=== PATIENT | male | born 1980 | race Caucasian/White ===

== ENCOUNTER → 2023-06-01 09:27 | Outpatient (CLI) | payer MEDICARE, SELFPAY | PROVIDERS: Referring Provider Family Medicine; Visit Provider Family Medicine | DX: Z23 Encounter for immunization (principal) | CPT/HCPCS: 90471; 90686 ==

== ENCOUNTER → 2024-04-30 13:44 | Outpatient (CLI) | payer MEDICARE, SELFPAY | PROVIDERS: Referring Provider Internal Medicine; Visit Provider Internal Medicine | DX: Z23 Encounter for immunization (principal) | CPT/HCPCS: 90471; 90656 ==

== ENCOUNTER 2025-03-19 08:11 | Emergency (ER) | payer SELFPAY ==
[2025-03-19] VITALS (21 sets, daily range): BP systolic 132–203; BP diastolic 79–117; PULSE 54–76; RESP 16–49; TEMP 37.3; O2SAT 81–98; BMI 46.3
--- NOTE | 2025-03-19 08:40 | DI.CT.S_ITS ---
PROCEDURE: CT ABDOMEN PELVIS W CON INDICATIONS: flank pain TECHNIQUE: After the administration of intravenous contrast, axial sections acquired from the lung bases to the pubic symphysis. Coronal and sagittal reformats were performed. For radiation dose reduction, the following was used: automated exposure control, adjustment of mA and/or kV according to patient size. COMPARISON: None. FINDINGS: Image quality: Diagnostic. Lower Chest: No significant findings. ABDOMEN: Markedly abnormal appearance of the right kidney with severe hydronephrosis and proximal hydroureter with the right ureteropelvic junction measuring up to 7 centimeters diameter. The mid and distal right ureter within normal limits in size. No gross abnormal calcification. [id number] enlarged prostate gland and seminal vesicles. Urinary bladder is nondistended. Mild nonspecific wall thickening descending and sigmoid colon commonly artifact from partial nondistention. In a few scattered diverticula in the descending colon. Pattern of constipation. Small sliding hiatal hernia with nonspecific wall thickening of the stomach into the proximal duodenum. Degenerative changes lower thoracic, lumbar spine most notably L5-S1. Liver: Liver is normal in size contour and attenuation without CT evidence of focal hepatic lesion. Gallbladder: No radiopaque gallstones or wall thickening. Biliary ducts: No biliary dilation. Pancreas: No ductal dilation. Spleen: Size is within normal limits. Adrenal Glands: No adrenal nodules. Small Bowel: Yolanda caliber, without wall thickening or obstruction. Peritoneum: No abnormal intraperitoneal fluid. No free air. Ventral Wall: No significant ventral hernia. Abdominal Nodes: No retroperitoneal or mesenteric adenopathy by size criteria. Vessels: Aorta and inferior vena cava are normal in size. PELVIS: Pelvic Organs: Unremarkable. Bladder: No bladder wall thickening, accounting for underdistention. Pelvic Nodes: No enlarged lymph nodes. Miscellaneous: No inguinal hernias are seen. IMPRESSION: Markedly abnormal appearance of the right kidney with severe right hydronephrosis and proximal hydroureter, pattern of obstruction. Other chronic findings as above. Dictated by: Compa Pendleton M.D. on 03/19/2025 at 9:06 Approved by: Compa Pendleton M.D. on 03/19/2025 at 9:11
--- NOTE | 2025-03-19 08:48 | ED.ABDPAIN ---
HPI - Abdominal Pain General Chief Complaint: Abdominal Pain Stated Complaint: Severe right side pain Time Seen by Provider: 03/19/25 08:33 Source: patient Mode of arrival: Ambulatory History of Present Illness HPI narrative: 44-year-old male complaining of bilateral flank pain right greater than left. Says it has been intermittent and ongoing for possibly up to a month. The pain is often times associated with nausea vomiting and sweats. He has not noted any fevers no changes in his bowel habits. Has been using ibuprofen and acetaminophen for pain with a incomplete relief has not seen a doctor for this previously. Says that he vomited a little bit of blood this morning. Not having dysuria frequency did note some blood in his urine this morning. Not presently taking any prescription medications. Related Data Previous Rx's ?Medication ?Instructions ?Recorded ondansetron 4 mg disintegrating 4 mg PO Q6H PRN nausea and 03/19/25 tablet vomiting #14 tabs oxycodone 5 mg tablet 5 mg PO Q6H PRN pain #20 tabs 03/19/25 Allergies Allergy/AdvReac Type Severity Reaction Status Date / Time amoxicillin Allergy Vomiting Verified 03/19/25 08:31 clavulanic acid (From Allergy Vomiting Verified 03/19/25 08:31 Augmentin) Penicillins Allergy Vomiting Verified 03/19/25 08:31 Patient History Smoking Status: Never smoker Exam Narrative Exam Narrative: Obese male who appears to be in no distress Vital signs are reviewed he is hypertensive, No CVAT no midline tenderness of the lumbar spine. Skin remarkable for diaphoresis Lungs are clear, hallux sounds are normal Abdomen is obese soft with some right flank tenderness no guarding no rebound and no mass. Neurologically he is alert and oriented no focal deficit affect is appropriate Initial Vital Signs Initial Vital Signs: Vital Signs Pulse Oximetry 96 03/19/25 08:21 Course Orders Ordered: ED Orders 03/19/25 08:40 CT abdomen pelvis w con Stat 03/19/25 08:42 Complete Blood Count AUTO DIFF Stat Comprehensive Metabolic Panel Stat Lipase Stat PTT Partial Thromboplastin Carlos Manuel Stat Prothrombin Time INR Stat 03/19/25 08:52 Type and Screen Stat 03/19/25 11:38 Urine Microscopic Stat 03/19/25 11:47 Consult to Urology Stat Discontinued Medications Hydromorphone HCl (Hydromorphone Hcl 0.5 Mg/0.5 Ml Syringe) 1 mg IV NOW ONE Stop: 03/19/25 09:46 Last Admin: 03/19/25 09:47 Dose: 1 mg Documented By: JUNAID Sodium Chloride (Normal Saline 0.9%) 1,000 mls @ 1,000 mls/hr IV BOLUS ONE Stop: 03/19/25 11:55 Last Infusion: 03/19/25 13:02 Dose: Infused Documented By: Admin: 03/19/25 11:10 Dose: 1,000 mls/hr Documented By: MILTON Ondansetron HCl (Ondansetron 4 Mg/2 Ml Inj) 4 mg IV NOW PRN PRN Reason: Nausea And Vomiting Last Admin: 03/19/25 09:48 Dose: 4 mg Documented By: JUNAID Ondansetron HCl (Ondansetron 4 Mg Odt) 4 mg PO NOW PRN PRN Reason: Nausea And Vomiting Consultations Consultation #1: Consulted Urology who saw the patient here in the emergency department. recommended outpatient follow up. Other options were presented to the patient by Urology Vital Signs Vital signs: Vital Signs - 8 hr 03/19/25 08:21 03/19/25 08:22 03/19/25 08:22 Temperature Pulse Rate 63 Respiratory Rate Blood Pressure 170/92 H Pulse Oximetry 96 96 Oxygen Delivery Method Oxygen Flow Rate 03/19/25 08:29 03/19/25 08:30 03/19/25 08:30 Temperature 99.1 F Pulse Rate 63 56 L Respiratory Rate 18 22 Blood Pressure 170/92 H 160/85 H Pulse Oximetry 96 96 Oxygen Delivery Method Room Air Oxygen Flow Rate 03/19/25 09:02 03/19/25 09:03 03/19/25 09:03 Temperature Pulse Rate 65 59 L Respiratory Rate 21 16 Blood Pressure 153/88 H Pulse Oximetry 95 95 Oxygen Delivery Method Oxygen Flow Rate 03/19/25 09:30 03/19/25 09:30 03/19/25 10:00 Temperature Pulse Rate 61 64 Respiratory Rate 28 H 21 Blood Pressure 203/117 H Pulse Oximetry 95 86 L Oxygen Delivery Method Oxygen Flow Rate 03/19/25 10:01 03/19/25 10:01 03/19/25 10:30 Temperature Pulse Rate 65 66 Respiratory Rate 17 25 H Blood Pressure 136/80 Pulse Oximetry 81 L 98 Oxygen Delivery Method Oxygen Flow Rate 03/19/25 10:30 03/19/25 11:00 03/19/25 11:00 Temperature Pulse Rate 65 Respiratory Rate 24 Blood Pressure 132/80 135/79 Pulse Oximetry 97 Oxygen Delivery Method Oxygen Flow Rate 03/19/25 11:30 03/19/25 11:30 03/19/25 12:00 Temperature Pulse Rate 76 Respiratory Rate 49 H Blood Pressure 155/84 H 140/107 H Pulse Oximetry 90 L Oxygen Delivery Method Oxygen Flow Rate 03/19/25 12:00 03/19/25 12:30 03/19/25 12:31 Temperature Pulse Rate 65 69 60 Respiratory Rate Blood Pressure Pulse Oximetry 97 98 97 Oxygen Delivery Method Nasal Cannula Oxygen Flow Rate 2 03/19/25 12:31 03/19/25 13:00 03/19/25 13:00 Temperature Pulse Rate 58 L Respiratory Rate Blood Pressure 179/98 H 174/108 H Pulse Oximetry 98 Oxygen Delivery Method Oxygen Flow Rate 03/19/25 13:30 03/19/25 13:31 03/19/25 13:31 Temperature Pulse Rate 63 61 Respiratory Rate Blood Pressure 144/92 H Pulse Oximetry 98 97 Oxygen Delivery Method Oxygen Flow Rate 03/19/25 14:00 03/19/25 14:30 03/19/25 14:31 Temperature Pulse Rate 54 L 60 56 L Respiratory Rate Blood Pressure Pulse Oximetry 97 98 98 Oxygen Delivery Method Oxygen Flow Rate 03/19/25 14:31 Temperature Pulse Rate Respiratory Rate Blood Pressure 185/96 H Pulse Oximetry Oxygen Delivery Method Oxygen Flow Rate MDM - Abdominal Pain Lab Data Lab results narrative: Labs were remarkable for a mild leukocytosis with a white count of 12.7. Creatinine is high normal at 1.2. Urinalysis does not suggest infection 03/19/25 08:42 03/19/25 08:42 Labs: Lab Results 03/19/25 03/19/25 03/19/25 Range/Units 08:42 08:52 11:38 WBC 12.7 H (4.5-11.0) X10^3/uL RBC 4.76 (4.5-5.9) X10^6/uL Hgb 13.8 (13.5-17.5) g/dL Hct 40.1 L (41-53) % MCV 84.2 (80-100) fL MCH 28.9 (26-34) PG MCHC 34.4 (30-36) % RDW 14.1 (11.6-14.8) % Plt Count 187 (150-400) X10^3/uL Neut % (Auto) 88.8 H (50-75) % Lymph % (Auto) 7.0 L (25-40) % [place] % (Auto) 3.5 (3-14) % Eos % (Auto) 0.1 L (2-4) % Baso % (Auto) 0.6 (0-2) % Neut # (Auto) 36227 H (6182-8598) /uL Lymph # (Auto) 900 L (9046-8846) /uL [place] # (Auto) 400 (0-900) /uL Eos # (Auto) 0 (0-450) /uL Baso # (Auto) 100 (0-100) /uL PT 11.5 (9.4-12.5) SECONDS INR 1.0 (0.9-1.3) APTT 32 (25.1-36.5) SECONDS Sodium 138 (137-145) mmol/L Potassium 3.8 (3.4-5.1) mmol/L Chloride 107 (98-107) mmol/L Carbon Dioxide 23 (22-32) mmol/L BUN 22 H (9-20) mg/dL Creatinine 1.20 (0.66-1.25) mg/dL Estimated GFR > 60 (>60) mL/min BUN/Creatinine Ratio 18.3 (6-22) Glucose 122 H (70-99) mg/dL Calcium 9.1 (8.4-10.2) mg/dL Total Bilirubin 0.5 (0.2-1.3) mg/dL AST 27 (17-59) IU/L ALT 32 (<50) IU/L Alkaline Phosphatase 69 (38-126) U/L Total Protein 8.0 (6.3-8.2) g/dL Albumin 4.4 (3.5-5.0) g/dL Globulin 3.6 (1.7-4.1) g/dL Albumin/Globulin Ratio 1.2 (1.0-2.8) Lipase 52 (23-300) U/L Urine RBC 0-1/hpf (0-5/HPF) Urine WBC None seen (0-5/HPF) Ur Squamous Epith Cells None seen (0-5/HPF) Urine Bacteria None seen (None) Ur Culture Indicated? Cult not indicated Vol Urine Centrifuged 10ml (spun) Blood Type O Negative Antibody Screen Negative Point of care testing: Urine Dip Bedside Urine Glucose Negative Bedside Urine Bilirubin - Negative Bedside Urine Ketone + 15 Urine Specific [place] 1.010 Bedside Urine Occult Blood ++ Bedside Urine pH 6.0 Bedside Urine Protein +/- 15 Bedside Urine Urobilinogen +/- 1mg Bedside Urine Nitrite - Negative Bedside Urine Leukocytes - Negative Esterase Imaging Data CT scan - abdomen/pelvis: My Impression: Independent review of CT abdomen and pelvis, very pronounced right hydronephrosis, and massive hydroureter, I do not appreciate a calcified stone. No inflammatory changes of the left lower quadrant your right lower quadrant. Radiologist's Impression: [address] [address] [address] Scan Report Signed Patient: Billy Burnett MR#: [id number] : 1980 Acct:[id number] Age/Sex: 44 / M Date of Service: 03/19/25 Loc: ED Accession Number: [id number] Procedure: CT abdomen pelvis w con Ordering Provider: Itz Escobar MD PROCEDURE: CT ABDOMEN PELVIS W CON INDICATIONS: flank pain TECHNIQUE: After the administration of intravenous contrast, axial sections acquired from the lung bases to the pubic symphysis. Coronal and sagittal reformats were performed. For radiation dose reduction, the following was used: automated exposure control, adjustment of mA and/or kV according to patient size. COMPARISON: None. FINDINGS: Image quality: Diagnostic. Lower Chest: No significant findings. ABDOMEN: Markedly abnormal appearance of the right kidney with severe hydronephrosis and proximal hydroureter with the right ureteropelvic junction measuring up to 7 centimeters diameter. The mid and distal right ureter within normal limits in size. No gross abnormal calcification. Egdp-[id number]-[id number] enlarged prostate gland and seminal vesicles. Urinary bladder is nondistended. Mild nonspecific wall thickening descending and sigmoid colon commonly artifact from partial nondistention. In a few scattered diverticula in the descending colon. Pattern of constipation. Small sliding hiatal hernia with nonspecific wall thickening of the stomach into the proximal duodenum. Degenerative changes lower thoracic, lumbar spine most notably L5-S1. Liver: Liver is normal in size contour and attenuation without CT evidence of focal hepatic lesion. Gallbladder: No radiopaque gallstones or wall thickening. Biliary ducts: No biliary dilation. Pancreas: No ductal dilation. Spleen: Size is within normal limits. Adrenal Glands: No adrenal nodules. Small Bowel: Yolanda caliber, without wall thickening or obstruction. Peritoneum: No abnormal intraperitoneal fluid. No free air. Ventral Wall: No significant ventral hernia. Abdominal Nodes: No retroperitoneal or mesenteric adenopathy by size criteria. Vessels: Aorta and inferior vena cava are normal in size. PELVIS: Pelvic Organs: Unremarkable. Bladder: No bladder wall thickening, accounting for underdistention. Pelvic Nodes: No enlarged lymph nodes. Miscellaneous: No inguinal hernias are seen. IMPRESSION: Markedly abnormal appearance of the right kidney with severe right hydronephrosis and proximal hydroureter, pattern of obstruction. Other chronic findings as above. Dictated by: Compa Pendleton M.D. on 03/19/2025 at 9:06 Approved by: Compa Pendleton M.D. on 03/19/2025 at 9:11 [facility] Narrative Medical decision making narrative: 44-year-old male presenting with flank pain. Differential diagnosis included pyelonephritis, ureteral stone, I considered the possibility of zoster or intra-abdominal causes such as bowel obstruction aortic aneurysm for cholecystitis. Workup did not suggest infection however he did have massive right hydronephrosis without stone seen. Renal functions are retained. Patient was seen in the department by Urology and outpatient follow up was planned. I provided a prescription for oxycodone to use as needed for pain and Zofran. The patient was counseled as to the signs of infection in the need for immediate recheck should these occur. Discharge Plan Departure Patient Disposition: Home Clinical Impression: Hydronephrosis, right, Acute right flank pain Activity Restrictions/Additional Instructions: Emergency department workup today shows a blockage of the flow out of your right kidney (hydronephrosis). You have been seen by Urology and will need to follow up with them for this. Call his office to make an appointment it appeared that they wanted to see you in about 4 weeks. In the meantime, continue previous home medications, you can use Tylenol 650-1000 mg up to 4 times a day as needed for pain, your total daily dose of Tylenol should not be above 4000 mg. You can also use ibuprofen 600 mg up to 3 times a day, it is best to take ibuprofen with food. I have provided prescriptions for ondansetron and oxycodone, ondansetron is for nausea and oxycodone is for pain. The oxycodone is a narcotic medication, use it sparingly, it can cause independence it can cause constipation he will make you drowsy you should not drink alcohol or operate machinery after taking it. If you develop signs of infection such as fevers shaking chills frequent vomiting you should return to the emergency department immediately. Additionally, return if you have uncontrolled pain. Prescriptions: New oxycodone 5 mg tablet 5 mg PO Q6H PRN (Reason: pain) Qty: 20 0RF ondansetron 4 mg tablet,disintegrating 4 mg PO Q6H PRN (Reason: nausea and vomiting) Qty: 14 0RF Referrals: Dhruv Degroot DO [Physician, Urology] Clinical Impression: Hydronephrosis, right Stand Alone Forms: Patient Portal/API, Work Release Note
[2025-03-19 08:51] LABS: Add Manual Diff / Slide Review NO; Hematocrit 40.1 % (41-53); Hemoglobin 13.8 g/dL (13.5-17.5); Lymphocytes Absolute Auto 900 /uL (1100-4500); Mean Corpuscular HGB Conc 34.4 % (30-36); Mean Corpuscular Hemoglobin 28.9 PG (26-34); Mean Corpuscular Volume 84.2 fL (80-100); Platelet Count 187 X10^3/uL (150-400)
[2025-03-19 08:58] LABS: INR 1.0 (0.9-1.3); Prothrombin Time 11.5 SECONDS (9.4-12.5)
[2025-03-19 09:01] LABS: PTT Partial Thromboplastin Tim 32 SECONDS (25.1-36.5)
[2025-03-19 09:03] LABS: Alanine Aminotransferase 32 IU/L (<50); Albumin 4.4 g/dL (3.5-5.0); Albumin Globulin Ratio 1.2 (1.0-2.8); Alkaline Phosphatase 69 U/L (38-126); Blood Urea Nitrogen 22 mg/dL (9-20); Calcium 9.1 mg/dL (8.4-10.2); Carbon Dioxide 23 mmol/L (22-32); Chloride 107 mmol/L (98-107); Estimated Glomerular Filt Rate > 60 mL/min (>60); Globulin 3.6 g/dL (1.7-4.1); Glucose 122 mg/dL (70-99); HEMOLYSIS < 15 (0-50); Lipase 52 U/L (23-300); Potassium 3.8 mmol/L (3.4-5.1); Sodium 138 mmol/L (137-145); Total Protein 8.0 g/dL (6.3-8.2)
[2025-03-19] MEDS: ONDANSETRON 4 MG/2 ML INJ IV (09:48)
[2025-03-19] MEDS: SODIUM CHLORIDE 0.9% 1,000 ML 1000 ML IV (11:10)
[2025-03-19 12:38] LABS: Culture Indicated Urine Cult Not Indicated
--- NOTE | 2025-03-19 13:02 | PM.CN.IH.1 ---
History of Present Illness Consult details Date Patient Seen: 03/19/25 Time Patient Seen: 12:45 Chief complaint: Severe right side pain Reason for consult: Right hydronephrosis Narrative: 44 y/o M presents to ER for evaluation of severe right flank pain. Briefly, this pain has been intermittent for the last 6 months and associated with nausea/vomiting. The pain can get as high as a 7-8/10. There is nothing that will make the pain any better or worse. He denies any prior h/o nephrolithiasis or Urological procedures. His evaluation in the ER was notable for a WBC of 12.7, sCr of 1.2 and an unremarkable UA. His CT Abd/Pel was notable for severe right hydronephrosis and proximal hydroureter without a clear transition point, mass or stone. He also has severe right renal parenchymal thinning. Meds Home Medications and Allergies Allergies Allergy/AdvReac Type Severity Reaction Status Date / Time amoxicillin Allergy Vomiting Verified 03/19/25 08:31 clavulanic acid (From Allergy Vomiting Verified 03/19/25 08:31 Augmentin) Penicillins Allergy Vomiting Verified 03/19/25 08:31 Review of Systems Review of Systems Narrative: CONSTITUTIONAL: Denies weight loss, fevers, chills. HEENT: Denies change in vision, hearing. RESP: Denies SOB, cough. CV: Denies palpations, CP. GI: Denies abdominal pain, nausea, vomiting, diarrhea. : Denies dysuria, hematuria, inability to void. MSK: Denies myalgia, joint pain. SKIN: Denies rash, pruritus. NEURO: Denies headache, syncope. PSYCH: Denies recent change in mood, anxiety, depression. Exam Vital Signs (past 8 hours): - 03/19/25 08:21 03/19/25 08:22 03/19/25 08:22 Temperature Pulse Rate 63 Respiratory Rate Blood Pressure 170/92 H Pulse Oximetry 96 96 Oxygen Delivery Method Oxygen Flow Rate 03/19/25 08:29 03/19/25 08:30 03/19/25 08:30 Temperature 99.1 F Pulse Rate 63 56 L Respiratory Rate 18 22 Blood Pressure 170/92 H 160/85 H Pulse Oximetry 96 96 Oxygen Delivery Method Room Air Oxygen Flow Rate 03/19/25 09:02 03/19/25 09:03 03/19/25 09:03 Temperature Pulse Rate 65 59 L Respiratory Rate 21 16 Blood Pressure 153/88 H Pulse Oximetry 95 95 Oxygen Delivery Method Oxygen Flow Rate 03/19/25 09:30 03/19/25 09:30 03/19/25 10:00 Temperature Pulse Rate 61 64 Respiratory Rate 28 H 21 Blood Pressure 203/117 H Pulse Oximetry 95 86 L Oxygen Delivery Method Oxygen Flow Rate 03/19/25 10:01 03/19/25 10:01 03/19/25 10:30 Temperature Pulse Rate 65 66 Respiratory Rate 17 25 H Blood Pressure 136/80 Pulse Oximetry 81 L 98 Oxygen Delivery Method Oxygen Flow Rate 03/19/25 10:30 03/19/25 11:00 03/19/25 11:00 Temperature Pulse Rate 65 Respiratory Rate 24 Blood Pressure 132/80 135/79 Pulse Oximetry 97 Oxygen Delivery Method Oxygen Flow Rate 03/19/25 11:30 03/19/25 11:30 03/19/25 12:00 Temperature Pulse Rate 76 Respiratory Rate 49 H Blood Pressure 155/84 H 140/107 H Pulse Oximetry 90 L Oxygen Delivery Method Oxygen Flow Rate 03/19/25 12:00 Temperature Pulse Rate 65 Respiratory Rate Blood Pressure Pulse Oximetry 97 Oxygen Delivery Method Nasal Cannula Oxygen Flow Rate 2 Oxygen Delivery Method Nasal Cannula Oxygen Flow Rate 2 Narrative Exam Narrative: GEN: Alert and oriented X3. No acute distress. Well-nourished. EYES: PERRLA, EOMI. HENT: Moist mucus membranes, no scleral icterus, normal neck ROM. RESP: Unlabored breathing, equal rise and fall of chest bilaterally, no cyanosis appreciated. CV: No peripheral edema, unremarkable heart rate. ABD: Soft, non-tender, non-distended, no palpable masses. EXT: No edema, clubbing or cyanosis. SKIN: No rashes or lesions. NEURO: No focal neurologic deficits, CN II-XII grossly intact. PSYCH: Cooperative, appropriate mood and affect. Objective Labs 03/19/25 08:42 03/19/25 08:42 Labs: Laboratory Results - last 24 hr 03/19/25 03/19/25 03/19/25 08:42 08:52 11:38 WBC 12.7 H RBC 4.76 Hgb 13.8 Hct 40.1 L MCV 84.2 MCH 28.9 MCHC 34.4 RDW 14.1 Plt Count 187 Neut % (Auto) 88.8 H Lymph % (Auto) 7.0 L [place] % (Auto) 3.5 Eos % (Auto) 0.1 L Baso % (Auto) 0.6 Neut # (Auto) 17487 H Lymph # (Auto) 900 L [place] # (Auto) 400 Eos # (Auto) 0 Baso # (Auto) 100 PT 11.5 INR 1.0 APTT 32 Sodium 138 Potassium 3.8 Chloride 107 Carbon Dioxide 23 BUN 22 H Creatinine 1.20 Estimated GFR > 60 BUN/Creatinine Ratio 18.3 Glucose 122 H Calcium 9.1 Total Bilirubin 0.5 AST 27 ALT 32 Alkaline Phosphatase 69 Total Protein 8.0 Albumin 4.4 Globulin 3.6 Albumin/Globulin Ratio 1.2 Lipase 52 Urine RBC 0-1/hpf Urine WBC None seen Ur Squamous Epith Cells None seen Urine Bacteria None seen Ur Culture Indicated? Cult not indicated Vol Urine Centrifuged 10ml (spun) Blood Type O Negative Antibody Screen Negative PFSH Tobacco & Substance Use Smoking Status: Never smoker Assessment & Plan Assessment and plan (1) Hydronephrosis, right: Status: Acute Plan: 44 y/o M w/ intermittent severe right flank pain in the setting of severe right hydronephrosis, severe proximal hydroureter and severe right parenchymal thinning. Discussed that there is not a clear transition or taper point and that no clear mass or obstructing stone is visualized. Therefore, discussed options moving forward to include a MAG 3 renal lasix scan as an outpatient, attempting a right ureteral stent placement or transfer to another hospital for a right PCN tube placement. Discussed risks of the cystoscopy with right ureteral stent placement to include but not limited to pain, bleeding, infection, injury to urethra/bladder/ureter, inability to access the ureter requiring discussion with Interventional Radiology regarding a possible ureteral stent placement in an antegrade fashion vs a possible nephroureteral stent and/or percutaneous nephrostomy tube, urinary tract infection, need for emergent open repair of bladder and/or ureter. At this time, he would prefer to return to clinic in 3-4 weeks for a MAG 3 renal lasix scan. Time-Based Coding :: [TOTAL MINUTES] spent with patient and on the chart (including review of chart, obtaining history, exam, reviewing outside data, placing orders, documenting exam and treatment plan, and counseling patient) on [DATE]. PROFEE Charge Codes Inpatient or Observation consultation: [id number]
== END 2025-03-19 15:06 | disposition home or self-care (01) ==
PROVIDERS: Emergency Provider Emergency Medicine
DX: N13.30 Unspecified hydronephrosis (principal); R10.31 Right lower quadrant pain; R11.2 Nausea with vomiting, unspecified
CPT/HCPCS: 36415; 74177; 80053; 81003; 81015; 83690; 85025; 85610; 85730; 86850; 86900; 86901; 96361; 96374; 96375; 99284; J1171; J2405; Q9967

== ENCOUNTER 2025-03-19 15:29 | Observation (INO) | payer SELFPAY ==
[2025-03-19] VITALS (12 sets, daily range): BP systolic 132–169; BP diastolic 72–118; PULSE 59–72; RESP 16–22; TEMP 36.3; O2SAT 93–97; BMI 42.5
--- NOTE | 2025-03-19 17:10 | ED.ABDPAIN ---
HPI - Abdominal Pain General Chief Complaint: Abdominal Pain Stated Complaint: kidney pain Time Seen by Provider: 03/19/25 16:45 Source: patient Mode of arrival: Ambulatory History of Present Illness HPI narrative: Patient 44-year-old male presenting for the 2nd time today for right-sided kidney stone. He was seen evaluated earlier evaluated by Urology for a severe right hydronephrosis and severe right renal parenchymal thickening, presenting today with ongoing right-sided kidney pain. He reports he never even picked up his medication he barely made it home. He was offered a ureteral stent outpatient follow-up or trans for, earlier he preferred a 3 to four-week follow-up scans but now he has changed his mind due to ongoing pain. Related Data Previous Rx's ?Medication ?Instructions ?Recorded ondansetron 4 mg disintegrating 4 mg PO Q6H PRN nausea and 03/19/25 tablet vomiting #14 tabs oxycodone 5 mg tablet 5 mg PO Q6H PRN pain #20 tabs 03/19/25 Allergies Allergy/AdvReac Type Severity Reaction Status Date / Time amoxicillin Allergy Vomiting Verified 03/19/25 08:31 clavulanic acid (From Allergy Vomiting Verified 03/19/25 08:31 Augmentin) Penicillins Allergy Vomiting Verified 03/19/25 08:31 Exam Initial Vital Signs Initial Vital Signs: Vital Signs Temperature 97.4 F L 03/19/25 16:29 Pulse Rate 63 03/19/25 16:29 Respiratory Rate 16 03/19/25 16:29 Blood Pressure 169/96 H 03/19/25 16:29 Pulse Oximetry 95 03/19/25 16:29 Oxygen Delivery Method Room Air 03/19/25 16:29 GENERAL: Alert 44-year-old male appears in pain and in [no acute] distress. HEENT: Head atraumatic,EOMI, pupils reactive, face symmetric, [moist] mucous membranes CARDIOVASCULAR: Regular rate and rhythm without murmurs, rubs or gallops. RESPIRATORY: Breath sounds equal bilaterally, no wheezes rales or rhonchi. ABDOMEN: Soft, nontender. Normoactive bowel sounds all 4 quadrants. No guarding or rebound. EXTREMITIES: Normal range of motion, no clubbing or edema. Neurovascularly intact : right flank pain NEUROLOGICAL: Alert and oriented x4.Normal gait and speech. SKIN: Warm, dry, no laceration, no petechiae, no rashes or lesions. Course Orders Ordered: Acetaminophen (Acetaminophen 325 Mg Tablet) 650 mg PO Q6H PRN PRN Reason: Fever/Mild Pain (1-3) Diazepam (Diazepam 10 Mg/2 Ml Syringe) 5 mg IV Q6HR PRN PRN Reason: Flank pain Hydromorphone HCl (Hydromorphone 1 Mg/Ml Syringe) 1 mg IV Q2HR PRN PRN Reason: Pain, Moderate (4-6) Last Admin: 03/19/25 17:43 Dose: 1 mg Documented By: DERRICK Sodium Chloride (Normal Saline 0.45%) 1,000 mls @ 100 mls/hr IV CONT ANA Naloxone HCl (Naloxone 0.4 Mg/Ml Vial) 0.2 mg IV Q2MIN PRN PRN Reason: Opiate Reversal Ondansetron HCl (Ondansetron 4 Mg/2 Ml Inj) 4 mg IV NOW PRN PRN Reason: Nausea And Vomiting Last Admin: 03/19/25 17:51 Dose: 4 mg Documented By: DERRICK Ondansetron HCl (Ondansetron 4 Mg Odt) 4 mg PO NOW PRN PRN Reason: Nausea And Vomiting Ondansetron HCl (Ondansetron 4 Mg/2 Ml Inj) 4 mg IV Q8HR PRN PRN Reason: Nausea And Vomiting Oxycodone HCl (Oxycodone Ir 5 Mg Tablet) 5 mg PO Q3H PRN PRN Reason: Pain, Moderate (4-6) Oxycodone HCl (Oxycodone Ir 10 Mg Tablet) 10 mg PO Q3H PRN PRN Reason: Pain, Severe (7-10) Discontinued Medications Tamsulosin HCl (Tamsulosin 0.4 Mg Capsule) 0.4 mg PO NOW ONE Stop: 03/19/25 18:34 Vital Signs Vital signs: Vital Signs - 8 hr 03/19/25 16:29 03/19/25 17:35 03/19/25 17:37 Temperature 97.4 F L Pulse Rate 63 65 Respiratory Rate 16 Blood Pressure 169/96 H 161/94 H Pulse Oximetry 95 97 Oxygen Delivery Method Room Air 03/19/25 17:37 03/19/25 18:00 Temperature Pulse Rate 60 59 L Respiratory Rate Blood Pressure Pulse Oximetry 96 94 Oxygen Delivery Method MDM - Abdominal Pain Imaging Data CT scan - abdomen/pelvis: Radiologist's Impression: PROCEDURE: CT ABDOMEN PELVIS W CON INDICATIONS: flank pain TECHNIQUE: After the administration of intravenous contrast, axial sections acquired from the lung bases to the pubic symphysis. Coronal and sagittal reformats were performed. For radiation dose reduction, the following was used: automated exposure control, adjustment of mA and/or kV according to patient size. COMPARISON: None. FINDINGS: Image quality: Diagnostic. Lower Chest: No significant findings. ABDOMEN: Markedly abnormal appearance of the right kidney with severe hydronephrosis and proximal hydroureter with the right ureteropelvic junction measuring up to 7 centimeters diameter. The mid and distal right ureter within normal limits in size. No gross abnormal calcification. [id number] enlarged prostate gland and seminal vesicles. Urinary bladder is nondistended. Mild nonspecific wall thickening descending and sigmoid colon commonly artifact from partial nondistention. In a few scattered diverticula in the descending colon. Pattern of constipation. Small sliding hiatal hernia with nonspecific wall thickening of the stomach into the proximal duodenum. Degenerative changes lower thoracic, lumbar spine most notably L5-S1. Liver: Liver is normal in size contour and attenuation without CT evidence of focal hepatic lesion. Gallbladder: No radiopaque gallstones or wall thickening. Biliary ducts: No biliary dilation. Pancreas: No ductal dilation. Spleen: Size is within normal limits. Adrenal Glands: No adrenal nodules. Small Bowel: Yolanda caliber, without wall thickening or obstruction. Peritoneum: No abnormal intraperitoneal fluid. No free air. Ventral Wall: No significant ventral hernia. Abdominal Nodes: No retroperitoneal or mesenteric adenopathy by size criteria. Vessels: Aorta and inferior vena cava are normal in size. PELVIS: Pelvic Organs: Unremarkable. Bladder: No bladder wall thickening, accounting for underdistention. Pelvic Nodes: No enlarged lymph nodes. Miscellaneous: No inguinal hernias are seen. IMPRESSION: Markedly abnormal appearance of the right kidney with severe right hydronephrosis and proximal hydroureter, pattern of obstruction. Other chronic findings as above. Dictated by: Compa Pendleton M.D. on 03/19/2025 at 9:06 [facility] Narrative Medical decision making narrative: Patient 44-year-old male who was here just a few hours ago had blood work in the CT and evaluation by Urology. He has pretty severe right hydronephrosis with an 8 mm stone on the right side. Urology gave him 3 different options in regards to treatment. At this time patient would like Urology to attempt to ureteral stent, knowing that it might be difficult and not possible. He does not want to be transferred at this time. He is given Dilaudid for pain which does help. consulted he reports that he can put in his stent but he is still may require a nephrostomy tube he is also given an outpatient option. He is fine to attempt to stent tomorrow recommends NPO and admission to the hospitalist. Dr. Arriaga accepts patient Discharge Plan Departure Patient Disposition: Admitted as Observation Clinical Impression: Hydronephrosis, right, Acute right flank pain Admit Date/Time: 03/19/25 18:00 Admit Provider: Jose Antonio Arriaga
[2025-03-19] MEDS: ONDANSETRON 4 MG/2 ML INJ IV (17:51)
--- NOTE | 2025-03-19 18:35 | P.HP_ITS ---
History of Present Illness History of Present Illness Date Patient Seen: 03/19/25 Chief complaint: kidney pain Narrative: Chief complaint: Right flank pain with hydronephrosis secondary to kidney stone History of present illness: 03/19: 44-year-old presented twice to the emergency room pain unable to manage at home he was evaluated earlier by Urology with severe right nephrosis and severe right parenchymal thickening on CT patient was placed on admission for pain management and cystoscopy with stent placement of the morning by Urology Patient has no significant past medical history Workup in the emergency department significant for white count of 12.7 with 89% neutrophils comprehensive metabolic urinalysis and coagulation unremarkable CT abdomen and pelvis shows a markedly abnormal appearance of the right kidney with severe hydronephrosis and proximal hydroureter Review of systems: No unusual weight loss weight gain No chest pain palpitations shortness for breath No rigors A paresthesia paresis Physical exam Middle-aged male in no acute distress HEENT unremarkable No labored respiration Obese abdomen nonacute Right CVAT Extremities no edema Neurologic nonfocal Assessment and plan: Right hydroureter possible right kidney stone * placed on pain control IV fluids Flomax * Consult with Urology * Go F2 midnight DVT prophylaxis * Not indicated Code status * Full code Disposition: * Observation Time based billing * 55 minutes were involved in evaluation of this patient including [id number] patient evaluation discussion with ER provider review of objective laboratory and imaging findings including imaging review of the images myself Meds Home Medications and Allergies Home Medications ?Medication ?Instructions ?Recorded ?Confirmed ?Type ondansetron 4 mg disintegrating 4 mg PO Q6H PRN nausea and 03/19/25 Rx tablet vomiting #14 tabs oxycodone 5 mg tablet 5 mg PO Q6H PRN pain #20 tab s 03/19/25 Rx Allergies Allergy/AdvReac Type Severity Reaction Status Date / Time amoxicillin Allergy Vomiting Verified 03/19/25 08:31 clavulanic acid (From Allergy Vomiting Verified 03/19/25 08:31 Augmentin) Penicillins Allergy Vomiting Verified 03/19/25 08:31 Exam Vital Signs (past 8 hours): - 03/19/25 16:29 03/19/25 17:35 03/19/25 17:37 Temperature 97.4 F L Pulse Rate 63 65 Respiratory Rate 16 Blood Pressure 169/96 H 161/94 H Pulse Oximetry 95 97 Oxygen Delivery Method Room Air 03/19/25 17:37 03/19/25 18:00 03/19/25 18:01 Temperature Pulse Rate 60 59 L 59 L Respiratory Rate Blood Pressure Pulse Oximetry 96 94 93 Oxygen Delivery Method 03/19/25 18:01 Temperature Pulse Rate Respiratory Rate Blood Pressure 137/82 Pulse Oximetry Oxygen Delivery Method Oxygen Delivery Method Room Air Assessment & Plan Time-Based Coding :: [TOTAL MINUTES] spent with patient and on the chart (including review of chart, obtaining history, exam, reviewing outside data, placing orders, documenting exam and treatment plan, and counseling patient) on [DATE].
[2025-03-19] MEDS: TAMSULOSIN 0.4 MG CAPSULE PO (19:06)
--- NOTE | 2025-03-19 19:26 | PC.NURSE ---
Pt resting on bed. Pt states his pain is about a 3-4/10 in his R lower back. Pt placed on 2L NC. States he has bad sleep apnea
[2025-03-19] MEDS: SODIUM CHLORIDE 0.45% 1,000 ML 100 ML IV (20:12)
[2025-03-20] VITALS (14 sets, daily range): BP systolic 143–202; BP diastolic 90–109; PULSE 70–106; RESP 16–24; TEMP 36.1–36.6; O2SAT 95–98; BMI 42.5
[2025-03-20] MEDS: SODIUM CHLORIDE 0.45% 1,000 ML 100 ML IV (04:41)
--- NOTE | 2025-03-20 09:58 | PM.CN.IH.1 ---
History of Present Illness Consult details Date Patient Seen: 03/20/25 Time Patient Seen: 09:30 Chief complaint: kidney pain Reason for consult: Severe right hydronephrosis, flank pain Narrative: 44 y/o M presents to ER for evaluation of severe right flank pain. Briefly, this pain has been intermittent for the last 6 months and associated with nausea/vomiting. The pain can get as high as a 7-8/10. There is nothing that will make the pain any better or worse. He denies any prior h/o nephrolithiasis or Urological procedures. His evaluation in the ER was notable for a WBC of 12.7, sCr of 1.2 and an unremarkable UA. His CT Abd/Pel was notable for severe right hydronephrosis and proximal hydroureter without a clear transition point, mass or stone. He also has severe right renal parenchymal thinning. His original consultation was on 19 Mar 2025. He opted for discharge home and was going to have a MAG3 Renal Lasix scan as an outpatient. Unfortunately, he returned shortly after discharge due to uncontrolled pain and preferred management via a cystoscopy with right ureteral stent placement. Meds Home Medications and Allergies Home Medications ?Medication ?Instructions ?Recorded ?Confirmed ?Type No Known Home Medications 03/19/25 03/19/25 History Allergies Allergy/AdvReac Type Severity Reaction Status Date / Time amoxicillin Allergy Vomiting Verified 03/19/25 08:31 clavulanic acid (From Allergy Vomiting Verified 03/19/25 08:31 Augmentin) Penicillins Allergy Vomiting Verified 03/19/25 08:31 Review of Systems Review of Systems Narrative: CONSTITUTIONAL: Denies weight loss, fevers, chills. HEENT: Denies change in vision, hearing. RESP: Denies SOB, cough. CV: Denies palpations, CP. GI: Denies abdominal pain, nausea, vomiting, diarrhea. : Denies dysuria, hematuria, inability to void. MSK: Denies myalgia, joint pain. SKIN: Denies rash, pruritus. NEURO: Denies headache, syncope. PSYCH: Denies recent change in mood, anxiety, depression. Exam Vital Signs (past 8 hours): - 03/20/25 06:08 03/20/25 07:00 Temperature 96.9 F L Pulse Rate 77 Respiratory Rate 22 Blood Pressure 160/108 H Pulse Oximetry 97 95 Oxygen Delivery Method CPAP Oxygen Flow Rate 0 Oxygen Delivery Method CPAP Oxygen Flow Rate 0 Narrative Exam Narrative: GEN: Alert and oriented X3. No acute distress. Well-nourished. EYES: PERRLA, EOMI. HENT: Moist mucus membranes, no scleral icterus, normal neck ROM. RESP: Unlabored breathing, equal rise and fall of chest bilaterally, no cyanosis appreciated. CV: No peripheral edema, unremarkable heart rate. ABD: Soft, non-tender, non-distended, no palpable masses. EXT: No edema, clubbing or cyanosis. SKIN: No rashes or lesions. NEURO: No focal neurologic deficits, CN II-XII grossly intact. PSYCH: Cooperative, appropriate mood and affect. PFSH Social History household members: spouse Tobacco & Substance Use Smoking Status: Never smoker Assessment & Plan Assessment and plan (1) Hydronephrosis, right: Status: Acute Plan: 44 y/o M w/ intermittent severe right flank pain in the setting of severe right hydronephrosis, severe proximal hydroureter and severe right parenchymal thinning. Discussed that there is not a clear transition or taper point and that no clear mass or obstructing stone is visualized. Therefore, discussed options moving forward to include a MAG 3 renal lasix scan as an outpatient, attempting a right ureteral stent placement or transfer to another hospital for a right PCN tube placement. Discussed risks of the cystoscopy with right ureteral stent placement to include but not limited to pain, bleeding, infection, injury to urethra/bladder/ureter, inability to access the ureter requiring discussion with Interventional Radiology regarding a possible ureteral stent placement in an antegrade fashion vs a possible nephroureteral stent and/or percutaneous nephrostomy tube, urinary tract infection, need for emergent open repair of bladder and/or ureter. At the time of his original consultation on 19 Mar 2025, he opted to return to clinic in 3-4 weeks for a MAG 3 renal lasix scan. Unfortunately, he returned to the ER shortly after discharge and opted for management via a cystoscopy with right ureteral stent placement. His informed consent was obtained this AM. - Appreciate assistance of hospitalist team with management of this patient - Remain NPO today - Add-on cystoscopy with right ureteral stent placement later today Time-Based Coding :: [TOTAL MINUTES] spent with patient and on the chart (including review of chart, obtaining history, exam, reviewing outside data, placing orders, documenting exam and treatment plan, and counseling patient) on [DATE]. PROFEE Charge Codes Inpatient or Observation consultation: [id number]
--- NOTE | 2025-03-20 11:38 | CM.DANOTE ---
Initial DCP Assessment Visit Note Reviewed EMR and team rounds for pt's medical status and updates. Met with pt at bedside to introduce self and role, pt was found to be alert/oriented, and able to share that Dr. Degroot is taking him to surgery today, but if the stent can't be placed, then he will need to be transferred to another hospital, this will be clarified later today. Pt resides independently with his spouse in their own home in [place]. His spouse will also plan to transport him home, depending on disposition. Payor: Self Pay No PCP Pt is a 44 year-old M who presented wtice to the ED yesterday for a R-sided kidney stone that was progressively getting more painful. He was initially evaluated by Urology, was sent home w/OP meds sent to his pharmacy. He returned back to the ED after the pain became severe, and never had a chance to even picker tender the prescription from Urology. CT abd/pelvis showed a R-sided kidney hydronephrosis and pattern of obstruction, also a large kidney stone was seen. Plan was made to make pt NPO for surgical plan of placing a ureteral stent. If the stent cannot be placed, he will be transferred out. DCP will continue to monitor and assist with any coordination or discharge needs. Discharge Planning/Care Management CM Discharge Assessment Start: 03/19/25 18:06 Freq: Status: Active Protocol: Document 03/20/25 11:36 DPL (Rec: 03/20/25 11:38 DPL [id number]) Discharge Planning Assessment Assigned Discharge Karen MONA Historical Guide Insurance Comment Self Pay Advance Directives? No History Provided By Patient,Medical Record Has Patient been No admitted in last 30 days? Prior Living House Arrangements Household Members spouse Type of Drives own vehicle transporation used prior to admit Independent with ADL Yes 's Is patient alert and Yes oriented? Caregiver for Yes Another Comment family Comment N/A Comment No identified home d/c needs at this time. Barriers to No Discharge Discharge Plan Home Referrals Initiated None needed Whiteboard Updated Yes in Patient Room with name and ext. # of Quality Control Tester Review Status In Process Please Provide Date 03/20/25 Initial DC Assessment Was Performed
[2025-03-20] MEDS: levoFLOXacin 500 MG/100 ML PIGGYBACK 100 MG IV (17:10)
--- NOTE | 2025-03-20 17:13 | SUR.OPER ---
Lithotomy on padded OR bed, head on pillow, arms secured on padded arm boards at <90 degrees abduction. Legs secured in padded yellow fins stirrups.
--- NOTE | 2025-03-20 17:32 | P.OP_ITS ---
Operative Date/Time/Diagnoses Date of procedure: 03/20/25 Time of procedure: 17:00 Pre-op diagnosis: Right severe hydronephrosis Post-op diagnosis: same Procedure & Clinicians Procedure: Cystoscopy Right retrograde ureteropyelogram Right ureteral stent placement Intraoperative interpretation of fluoroscopic images, total time < 1 hour Same procedure(s) as scheduled: Yes Indications: 44 y/o M w/ intermittent severe right flank pain in the setting of severe right hydronephrosis, severe proximal hydroureter and severe right parenchymal thin hebert. Discussed that there is not a clear transition or taper point and that no clear mass or obstructing stone is visualized. Therefore, discussed options moving forward to include a MAG 3 renal lasix scan as an outpatient, attempting a right ureteral stent placement or transfer to another hospital for a right PCN tube placement. Discussed risks of the cystoscopy with right ureteral stent placement to include but not limited to pain, bleeding, infection, injury to urethra/bladder/ureter, inability to access the ureter requiring discussion with Interventional Radiology regarding a possible ureteral stent placement in an antegrade fashion vs a possible nephroureteral stent and/or percutaneous nephrostomy tube, urinary tract infection, need for emergent open repair of bladder and/or ureter. At the time of his original consultation on 19 Mar 2025, he opted to return to clinic in 3-4 weeks for a MAG 3 renal lasix scan. Unfortunately, he returned to the ER shortly after discharge and opted for management via a cystoscopy with right ureteral stent placement. His informed consent was obtained this AM. Surgeon: Dhruv Degroot Assisted?: No Anesthesia Type: General Operative Notes Findings: Severe right hydronephrosis, severe right proximal hydroureter Closure Type: not applicable Specimen(s): none sent Applied: none Estimated Blood Loss (mL): 2 Blood products transfused: none Procedure in detail: Patient was identified in the preoperative holding area and consent confirmed. He was then brought to the operating room where general anesthesia was induced.? He was then placed in the low lithotomy position. He was then prepped and draped in the usual sterile fashion. A surgical timeout was conducted and all were in agreement. Access to the bladder was obtained via a 21Fr cystoscope.? Complete cystoscopy was performed and no concerning masses or lesions were noted. The right ureteral orifice was easily visualized and a 0.035 sensor tip ureteral guidewire was advanced through the 5Fr ureteral catheter and into the right renal collecting system.? The ureteral guidewire was removed and a retrograde pyelogram was performed which noted severe right hydronephrosis and severe right proximal hydroureter.? The ureteral guidewire was readvanced through the urete ral catheter and into the right renal pelvis.? The ureteral catheter was then removed.? A 6Fr multi-length JJ ureteral stent without strings was then advanced over the ureteral guidewire and into the right renal collecting system.? Upon removal of the ureteral guidewire, a good curl was appreciated within the right renal pelvis upon fluoroscopy and visually within the bladder.? The bladder was then drained and the cystoscope was removed.? Anesthesia was reversed, he was extubated in the OR and transferred to the PACU in stable condition for recovery. Complications: none Post-operative Condition: stable Disposition: Acute Care Plan for aftercare: Transfer back to acute care. If pain has resolved, okay to discharge home with Urology follow-up in a few weeks. If pain remains uncontrolled, will need transfer to a higher echelon of care for placement of a right percutaneous nephrostomy tube with Interventional Radiology.
--- NOTE | 2025-03-20 17:44 | DI.RAD.S_ITS ---
PROCEDURE: XR ABDOMEN MIN 2V INDICATIONS: RIGHT STENT PLACEMENT TECHNIQUE: 5 intraoperative fluoroscopic radiographs were acquired COMPARISON: None. FINDINGS/IMPRESSION: Intraoperative fluoroscopy shows steps to completion of right ureteral cannulae is a mejia and placement of a pigtail right ureteral stent in the right renal pelvis and urinary bladder. There is marked right hydronephrosis. Dictated by: Marc Mckeon M.D. on 03/20/2025 at 18:03 Approved by: Marc Mckeon M.D. on 03/20/2025 at 18:04
[2025-03-20] MEDS: ONDANSETRON 4 MG/2 ML INJ IV (18:22)
--- NOTE | 2025-03-20 18:36 | SUR.PHASEI ---
Notiifed anesthesia provider regarding continued hypertension. Patient asymptomatic; per anesthesia, defer BP medication management to inpatient hospitalist.
[2025-03-21 03:55] VITALS: BP 142/97; PULSE 67; RESP 20; TEMP 36.3; O2SAT 98
--- NOTE | 2025-03-21 08:02 | P.PN_ITS ---
Subjective Subjective Date Patient Seen: 03/21/25 Time Patient Seen: 07:40 Interval history: 44 y/o M presents to ER for evaluation of severe right flank pain. Briefly, this pain has been intermittent for the last 6 months and associated with nausea/vomiting. The pain can get as high as a 7-8/10. There is nothing that will make the pain any better or worse. He denies any prior h/o nephrolithiasis or Urological procedures. His evaluation in the ER was notable for a WBC of 12.7, sCr of 1.2 and an unremarkable UA. His CT Abd/Pel was notable for severe right hydronephrosis and proximal hydroureter without a clear transition point, mass or stone. He also has severe right renal parenchymal thinning. His original consultation was on 19 Mar 2025. He opted for discharge home and was going to have a MAG3 Renal Lasix scan as an outpatient. Unfortunately, he returned shortly after discharge due to uncontrolled pain and preferred management via a cystoscopy with right ureteral stent placement. This was completed with intraoperative findings of severe right hydronephrosis and severe right proximal hydroureter. He admits that his flank pain has improved by at least 50%. Exam Vital Signs (past 8 hours): - 03/21/25 03:55 Temperature 97.3 F L Pulse Rate 67 Respiratory Rate 20 Blood Pressure 142/97 H Pulse Oximetry 98 Oxygen Flow Rate 0 Oxygen Delivery Method Room Air Oxygen Flow Rate 0 Narrative Exam Narrative: GEN: Alert and oriented X3. No acute distress. Well-nourished. EYES: PERRLA, EOMI. HENT: Moist mucus membranes, no scleral icterus, normal neck ROM. RESP: Unlabored breathing, equal rise and fall of chest bilaterally, no cyanosis appreciated. CV: No peripheral edema, unremarkable heart rate. ABD: Soft, non-tender, non-distended, no palpable masses. EXT: No edema, clubbing or cyanosis. SKIN: No rashes or lesions. NEURO: No focal neurologic deficits, CN II-XII grossly intact. PSYCH: Cooperative, appropriate mood and affect. [facility] Medical History History of emergence delirium Social History household members: spouse Smoking Status: Never smoker Assessment & Plan Post-op Postoperative Procedures: Procedures Operation Date: 03/20/25 16:00 Actual Procedure Side Surgeon p Cystoscopy w/ Right Ureteral Stent Placement Right Dhruv Degroot DO Postoperative status: doing well Postoperative plan: routine post-op care Postoperative plan narrative: 44 y/o M w/ intermittent severe right flank pain in the setting of severe right hydronephrosis, severe proximal hydroureter and severe right parenchymal thinning. Discussed that there is not a clear transition or taper point and that no clear mass or obstructing stone is visualized. Therefore, discussed options moving forward to include a MAG 3 renal lasix scan as an outpatient, attempting a right ureteral stent placement or transfer to another hospital for a right PCN tube placement. At the time of his original consultation on 19 Mar 2025, he opted to return to clinic in 3-4 weeks for a MAG 3 renal lasix scan. Unfortunately, he returned to the ER shor tly after discharge and opted for management via a cystoscopy with right ureteral stent placement. This was completed with intraoperative findings of severe right hydronephrosis and right proximal hydroureter. - Appreciate assistance of hospitalist team with management of this patient - Safe for discharge from Urology perspective. - Will return to Urology clinic in 3-4 weeks with a RBUS. Time Spent With Patient Time with patient: less than 15 minutes
--- NOTE | 2025-03-21 09:16 | P.DS_ITS ---
History of Present Illness History of Present Illness Chief complaint: kidney pain Narrative: From H&P: Chief complaint: Right flank pain with hydronephrosis secondary to kidney stone History of present illness: 03/19: 44-year-old presented twice to the emergency room pain unable to manage at home he was evaluated earlier by Urology with severe right nephrosis and severe right parenchymal thickening on CT patient was placed on admission for pain management and cystoscopy with stent placement of the morning by Urology Patient has no significant past medical history Workup in the emergency department significant for white count of 12.7 with 89% neutrophils comprehensive metabolic urinalysis and coagulation unremarkable CT abdomen and pelvis shows a markedly abnormal appearance of the right kidney with severe hydronephrosis and proximal hydroureter Discharge Providers Provider Date of admission: 03/19/25 18:00 Discharge Date: 03/21/25 Consults: Urology, Dr. Degroot. Discharge provider: Deon Lyle MD Summary Hospital Course Discharge Diagnosis: 1. Right hydroureter, S/P stent with improvement of pain. Hospital Course: Patient was admitted with flank pain and found to have hydroureter. He underwent successful placement of a stent with a great reduction of his flank pain. He was seen by Urology in the day of discharge he felt to be stable for discharge home with follow up in 1-2 weeks. There was no evidence of a urine infection. A kidney stone was not visualized. Status at Discharge Cognitive/behavioral status at discharge: oriented Functional status at discharge: independent ambulation Overall status at discharge: patient is back to baseline Time Spent with Patient Time spent: Greater than 30 minutes Exam Vital Signs (past 8 hours): - 03/21/25 03:55 Temperature 97.3 F L Pulse Rate 67 Respiratory Rate 20 Blood Pressure 142/97 H Pulse Oximetry 98 Oxygen Flow Rate 0 Oxygen Delivery Method Room Air Oxygen Flow Rate 0 Narrative Exam Narrative: NAD, alert and oriented. Fluent speech. Lungs are clear, normal rate and effort. Heart is regular, no murmur gallop or rub. Abdomen is soft, non distended. Extremities are free of edema. Objective Imaging CT scan - abdomen: Radiologist's impression: markedly abnormal appearance of the right kidney with severe hydronephrosis and proximal hydroureter [facility] Medical History History of emergence delirium Social History household members: spouse Smoking Status: Never smoker Discharge Assessment & Plan Assessment and Plan Assessment: 1. Right hydroureter flank pain with successful placement of ureter stent and improvement of pain. Plan of Treatment: Discharge home with pain medications, Flomax, and short term Urology follow up. Case was discussed with the urologist on the day of discharge. Discharge Plan Discharge Plan Patient Disposition: Home Provider Discharge Comment: Stable for discharge home with close Urology follow up. Discharge orders & Medications Prescriptions: New oxycodone 5 mg Tablet 5 mg PO Q3H PRN (Reason: Pain, Moderate (4-6)) Qty: 15 0RF tamsulosin [Flomax] 0.4 mg capsule 0.4 mg PO BEDTIME Qty: 30 2RF Medication counseling provided by Pharmacist: No Diet/Activity/Treatments Diet: Regular Visit Report/Discharge Packet Instructions: DI for Cystoscopy, DI for Ureteral Stent Placement Stand Alone Forms: Patient Portal/API Discharge Data Attending Provider: Jose Antonio Arriaga Admjovany Date/Time: 03/19/25 18:00
--- NOTE | 2025-03-21 10:14 | CM.DPC ---
DCP Cont. Reviewed EMR and team rounds for pt's medical status and updates. Pt has been medically cleared for home d/c. His will be transporting him home. No CM or d/c needs identified at this time.
--- NOTE | 2025-03-24 07:35 | P.PN_ITS ---
Subjective Subjective Date Patient Seen: 03/20/25 Interval history: Chief complaint: Right flank pain with hydronephrosis secondary to kidney stone History of present illness: 03/19: 44-year-old presented twice to the emergency room pain unable to manage at home he was evaluated earlier by Urology with severe right nephrosis and severe right parenchymal thickening on CT patient was placed on admission for pain management and cystoscopy with stent placement of the morning by Urology Hospital Course 03/20: Awaiting cystoscopy Review of systems: No unusual weight loss weight gain No chest pain palpitations shortness for breath No rigors A paresthesia paresis Physical exam Middle-aged male in no acute distress HEENT unremarkable No labored respiration Obese abdomen nonacute Right CVAT Extremities no edema Neurologic nonfocal Assessment and plan: Right hydroureter possible right kidney stone * placed on pain control IV fluids Flomax * Consult with Urology * Go F2 midnight DVT prophylaxis * Not indicated Code status * Full code Disposition: * Observation Time based billing * 55 minutes were involved in evaluation of this patient including [id number] patient evaluation discussion with ER provider review of objective laboratory and imaging findings including imaging review of the images myself Exam Vital Signs (past 8 hours): Oxygen Delivery Method Room Air Oxygen Flow Rate 0 PFSH Medical History History of emergence delirium Social History household members: spouse Smoking Status: Never smoker Assessment & Plan Time-Based Coding :: [TOTAL MINUTES] spent with patient and on the chart (including review of chart, obtaining history, exam, reviewing outside data, placing orders, documenting exam and treatment plan, and counseling patient) on [DATE].
== END 2025-03-21 10:40 | disposition home or self-care (01) ==
LOC: ED 17:59 → AC 18:01
PROVIDERS: Urology; Admitting Provider Internal Medicine; Emergency Provider Emergency Medicine; Referring Provider Emergency Medicine; Visit Provider Internal Medicine
PROC: (CPT 52332; principal; 2025-03-20 16:00)
DX: N13.30 Unspecified hydronephrosis (principal); N13.4 Hydroureter
CPT/HCPCS: 52332; 74420; 36415; 74019; 76000; 94762; 96361; 96374; 96375; 96376; 99284; G0378; C2617; J1100; J1171; J1956; J2060; J2250; J2405; J2704; J3010; J3490; J7050; Q9967